=== PATIENT | male | born 1950 | race African-American/Black ===

== ENCOUNTER 2019-01-14 19:07 | Inpatient (IN) | payer OTHER ==
[~2019-01-14] VITALS: Ht 170.2 cm; Wt 74.8 kg
[2019-01-14 19:10] VITALS: BP 151/82
[2019-01-14 21:03] LABS: ABSOLUTE NEUTROPHILS 6.3 thou/uL (1.4-8.2); BASOPHILS 0.6 % (0.0-2.0); EOSINOPHILS 1.4 % (0.0-3.0); HEMATOCRIT 41.3 % (42.0-52.0); HEMOGLOBIN 13.8 gm/dL (14.0-18.0); LYMPHOCYTES 18.3 % (24.0-44.0); MCH 27.7 pg (26.0-34.0); MCHC 33.6 g/dL (28.0-37.0); MCV 82.7 fL (80.0-100.0); MONOCYTES 8.7 % (1.0-8.0); PLATELET COUNT 253 thou/uL (150-400); RBC 4.99 mil/uL (4.50-6.00); RDW 16.4 % (10.5-14.5); WBC 8.9 thou/uL (4.0-11.0)
[2019-01-14 21:11] LABS: ANION GAP 9 mmol/L (7-16); BUN 17 mg/dL (7-18); CALCIUM 9.8 mg/dL (8.5-10.1); CHLORIDE 103 mmol/L (98-107); CO2 27 mmol/L (21-32); CREATININE 1.1 mg/dL (0.7-1.3); GLUCOSE 111 mg/dL (74-106); POTASSIUM 3.6 mmol/L (3.5-5.1); SODIUM 139 mmol/L (136-145)
[2019-01-14 21:21] LABS: ALBUMIN 3.9 g/dL (3.4-5.0); SGOT 36 U/L (15-37); SGPT 33 U/L (30-65); TOTAL BILIRUBIN 0.5 mg/dL (<0.1-1.0); TOTAL PROTEIN 7.9 g/dL (6.4-8.2); TROPONIN-I <0.06 ng/mL (<0.06)
[2019-01-14 21:24] LABS: BE(vivo) 1.7 mmol/L (-2 to +3); HCO3 26.5 mmol/L (22.0-26.0); PCO2 42.4 mmHg (35.0-45.0); pH 7.414 (7.360-7.450); sO2 88.5 % (92.0-98.0)
[2019-01-14 21:31] LABS: PO2 54.1 mmHg (80.0-100.0)
[2019-01-15] MEDS ORDERED: PREDNISONE 5 MG5 M1 PO (00:39)
[2019-01-15] MEDS ORDERED: FLOMAX0.4 MG PO (00:39)
[2019-01-15] MEDS ORDERED: SINGULAIR 10 MG10 M1 PO (00:40)
[2019-01-15] MEDS ORDERED: VENTOLIN HFA 1818 GM INH (00:40)
[2019-01-15] MEDS ORDERED: NORVASC5 MG PO (00:42)
[2019-01-15] MEDS ORDERED: IPRAT-ALBUT 0.5-3 ML INH (00:42)
[2019-01-15] MEDS ORDERED: FLONASE 0.05%50 MCG NASAL (00:43)
[2019-01-15] MEDS ORDERED: BREO ELLIPTA 11 EACH INH (00:44)
[2019-01-15 01:10] VITALS: BP 147/88
--- NOTE | 2019-01-15 03:17 | NUR ---
PT ARRIVED TO UNIT AROUND 2400. ADMISSION COMPLETED, CARE PLAN INITIATED, MED REC COMPLETED. PT IS UP AD IRAIS, VSS, NO COMPLAINTS OF N/V OR PAIN. ONLY COMPLAINT WAS THAT PT DID NOT TAKE HIS FLOMAX BEFORE ARRIVING TO [facility]. GAVE NO SCHEDULED DOSE TO REDUCE PT ANXIETY AND HELP WITH URINATION. FOLLOWING POC WITH IVPB ANTIBIOTICS. HOURLY ROUNDING.
[2019-01-15 03:40] VITALS: BP 142/91
[2019-01-15 07:25] VITALS: BP 139/83
--- NOTE | 2019-01-15 08:26 | NUR ---
ASSESSMENT: CM REVIEWED CHART AND MET WITH PATIENT AT THE BEDSIDE. PT IS ALERT AND ORIENTED X4. PT WAS ADMITTED WITH ACUTE RESPIRATORY FAILURE/PNA. PT REPORTS LIVING IN A HOUSE WITH HIS . PT REPORTS ABOUT 3 STEPS WITH HANDRAILS TO ENTER AND NO STEPS HE HAS TO USE ONCE INSIDE. PT REPORTS AMBULATING INDEPENDENTLY AND IS INDEPENDENT WITH ADLS. PT DENIES HAVING ANY DME OR THE NEED FOR IT. PT REPORTS HE HAS NOT HAD HH IN THE PAST OR BEEN TO A SNF/REHAB. CM DISCUSSED ROLE. PT DOES NOT ANTICIPATE HAVING ANY NEEDS AT DISCHARGE AND PLANS ON RETURNING HOME ONCE MEDICALLY STABLE. CM WILL CONTINUE TO FOLLOW.
--- NOTE | 2019-01-15 08:37 | EKG ---
[place] [address] [facility] [place] [address] ELECTROCARDIOGRAM REPORT Name: JEAN SHRESTHA Room #: 349-I ADM IN M.R.#: [id number] ������������������ Admission: 01/14/19 ������������������ Attend Phys: Adams Lipscomb Discharge: ������������������ Date of : 52 Report #: [id number] ����������������������������������������������������������������� [id number] THIS REPORT FOR: //name// [facility] ED Test Date: 2019-01-14 Test Time: 20:41:47 Pat Name: JEAN SHRESTHA Department: Room: 349 Gender: M On Site Services Specialist: : 1950 Requested By: Lilibeth Fritz Order Number: [id number] MD: Rolf Johnston Measurements Intervals [place] Rate: 85 P: 49 NE: 196 QRS: -51 QRSD: 92 T: 73 QT: 342 QTc: 407 Interpretive Statements Sinus rhythm Left anterior fascicular block Abnormal R-wave progression, early transition No previous ECG available for comparison Electronically Signed On 01-15-2019 8:36:59 CDT by Rolf Johnston [email or web address] ��������������������������������������������� <ELECTRONICALLY SIGNED> ���������������������������������������� By: Rolf Johnston MD, [facility] ��������������������������������������������� 01/15/19 0836 40 40 Rolf Johnston MD, [facility] /EPI
[2019-01-15 16:11] VITALS: BP 150/81
[2019-01-15 20:02] VITALS: BP 145/89
[2019-01-16 03:37] VITALS: BP 128/75
--- NOTE | 2019-01-16 04:44 | NUR ---
FOLLOWING POC WITH IVPB AND ORAL MEDICATIONS. PT ON 2L 0XYGEN DUE TO BECOMING SOA ON EXERTION. PT AXIOUS ABOUT RECEIVING HIS MEDICATION BEFORE 2100. NO OTHER COMPLAINTS. VSS, TELE RUNS NSR.
[2019-01-16 05:46] LABS: ABSOLUTE NEUTROPHILS 17.7 thou/uL (1.4-8.2); BASOPHILS 0.1 % (0.0-2.0); HEMATOCRIT 43.4 % (42.0-52.0); LYMPHOCYTES 3.8 % (24.0-44.0); MCHC 32.3 g/dL (28.0-37.0); MCV 83.7 fL (80.0-100.0); MONOCYTES 3.6 % (1.0-8.0); PLATELET COUNT 302 thou/uL (150-400); POLYS 92.5 % (36.0-66.0); RBC 5.19 mil/uL (4.50-6.00); RDW 16.3 % (10.5-14.5); WBC 19.1 thou/uL (4.0-11.0)
[2019-01-16 07:12] VITALS: BP 130/84
--- NOTE | 2019-01-16 11:16 | NUR ---
PT REQUESTING MAGNESIUM CITRATE, STATES HE TAKES IT AT HOME. PAGED DR RODRIGUEZ.
--- NOTE | 2019-01-16 15:23 | NUR ---
ON-GOING ASSESSMENT: CM REVIEWED CHART. PT IS SLOWLY PROGRESSING TOWARDS DISCHARGE GOALS. PT IS UP AND WALKING AROUND THE UNIT. PT REPORTS HE WILL HAVE NO NEEDS AT DISCHARGE. CM WILL CONTINUE TO FOLLOW.
[2019-01-16 16:04] VITALS: BP 132/90
--- NOTE | 2019-01-16 18:38 | NUR ---
PT ON ROOM AIR ALL DAY, BREATHING EASIER PER SELF REPORT. PT AMBULATED AROUND UNIT MULTIPLE TIMES. PT HAS BEEN DOWNGRADED TO MED/SURG STATUS.
[2019-01-16 19:00] VITALS: BP 154/57
[2019-01-16 19:35] VITALS: BP 127/75
[2019-01-16 20:33] VITALS: BP 162/85
[2019-01-17 03:20] VITALS: BP 144/88
--- NOTE | 2019-01-17 04:10 | NUR ---
TRANSFER PT FROM [facility] ARRIVED THE UNIT AROUND 2029. PT A&OX4. ADLIB WITH STAEDY GAIT. OXYGEN STABLE. PT HAS NO BREATHING DIFFICULTIES. PT STATES HE FEELS SO MUCH BETTER. WILL CONT TO MONITOR
[2019-01-17 07:48] VITALS: BP 126/77
--- NOTE | 2019-01-17 14:45 | NUR ---
ASSUMED CARE OF PATIENT AT 0715, PATIENT ALERT AND ORIENTED X 4. PATIENT UP AD IRAIS, WALKING IN HALLWAYS. NO C/O PAIN AT THIS TIME. PATIENT HAS RIGHT HAND IV IN PLACE. BILATERAL LUNGS CLEAR/DIMINISHED, PATIENT ON ROOM AIR. VSS THIS AM. DR DIXON HERE THIS AFTERNOON, PATIENT WILL DISCHARGE TO HOME. WILL D/C RIGHT HAND IV, AND GIVE ALL DISCHARGE PAPERWORK AND ENSURE ALL PERSONAL BELONGINGS WILL BE SENT WITH THE PATIENT.
[2019-01-17] MEDS ORDERED: LEVAQUIN 750 M750 MG PO (14:52)
[2019-01-17] MEDS ORDERED: PREDNISONE 10 M10 MG PO (14:53)
[2019-01-17 15:25] VITALS: BP 126/77
== END 2019-01-17 17:26 | disposition home or self-care (01) | DRG 205 ==
LOC: ER 19:07 → 3W 21:39 → EROBS 21:39 → 3W 23:13 → 4W 01-16 19:56
PROVIDERS: Pediatrics; Physician Assistant; ADMIT Hospitalist
DX: J68.0 Bronchitis and pneumonitis due to chemicals, gases, fumes and vapors (principal); J96.21 Acute and chronic respiratory failure with hypoxia; J45.901 Unspecified asthma with (acute) exacerbation; J44.0 Chronic obstructive pulmonary disease with (acute) lower respiratory infection; J44.1 Chronic obstructive pulmonary disease with (acute) exacerbation; I10 Essential (primary) hypertension; N40.0 Benign prostatic hyperplasia without lower urinary tract symptoms; E66.9 Obesity, unspecified; Z87.891 Personal history of nicotine dependence; Z68.25 Body mass index [BMI] 25.0-25.9, adult; Z79.899 Other long term (current) drug therapy
CPT/HCPCS: 10047; 10879

== ENCOUNTER → 2019-01-30 | Outpatient (CLI) | payer OTHER ==
[~2019-01-30] MED LIST: BREO ELLIPTA 11 EACH INH; FLOMAX0.4 MG PO; FLONASE 0.05%50 MCG NASAL; IPRAT-ALBUT 0.5-3 ML INH; LEVAQUIN 750 M750 MG PO; NORVASC5 MG PO; PREDNISONE 10 M10 MG PO; PREDNISONE 5 MG5 M1 PO; SINGULAIR 10 MG10 M1 PO; VENTOLIN HFA 1818 GM INH
== END ==
LOC: RAD 09:08
DX: J98.11 Atelectasis (principal); R91.8 Other nonspecific abnormal finding of lung field; R91.1 Solitary pulmonary nodule

== ENCOUNTER 2019-06-06 04:58 | Inpatient (IN) | payer OTHER ==
[2019-06-06] VITALS (7 sets, daily range): BP systolic 144–164; BP diastolic 80–100
[~2019-06-06] VITALS: Ht 170.2 cm; Wt 79.8 kg
[2019-06-06 05:44] LABS: BE(vivo) 1.8 mmol/L (-2 to +3); HCO3 26.5 mmol/L (22.0-26.0); PCO2 41.8 mmHg (35.0-45.0); PO2 77.4 mmHg (80.0-100.0); sO2 95.7 % (92.0-98.0)
[2019-06-06] MEDS ORDERED: CLARITIN10 MG PO (06:37)
[2019-06-06] MEDS ORDERED: PROSCAR 5MG TABL5 MG PO (06:38)
[2019-06-06 06:39] LABS: HEMATOCRIT 43.5 % (42.0-52.0); HEMOGLOBIN 13.7 gm/dL (14.0-18.0); MCH 26.3 pg (26.0-34.0); MCHC 31.5 g/dL (28.0-37.0); MCV 83.4 fL (80.0-100.0); RBC 5.21 mil/uL (4.50-6.00); RDW 14.7 % (10.5-14.5)
[2019-06-06] MEDS ORDERED: CARTIA XT120 M1 PO (06:39)
[2019-06-06] MEDS ORDERED: PROTONIX 20 MG20 MG PO (06:39)
[2019-06-06] MEDS ORDERED: TRELEGY ELLIPTA PO (06:43)
[2019-06-06] MEDS ORDERED: AEROBIKA1 EACH PO (06:44)
[2019-06-06 06:46] LABS: ANION GAP 9 mmol/L (7-16); BUN 11 mg/dL (7-18); CALCIUM 9.1 mg/dL (8.5-10.1); CHLORIDE 103 mmol/L (98-107); CO2 29 mmol/L (21-32); CREATININE 1.1 mg/dL (0.7-1.3); GLUCOSE 90 mg/dL (74-106); POTASSIUM 3.4 mmol/L (3.5-5.1); SODIUM 141 mmol/L (136-145)
[2019-06-06 06:55] LABS: TROPONIN-I <0.06 ng/mL (<0.06)
--- NOTE | 2019-06-06 09:04 | EKG ---
[place] [address] [facility] [email or web address] [address] ELECTROCARDIOGRAM REPORT Name: JEAN SHRESTHA Room #: 170-9 ADM IN M.R.#: [id number] Admission: 06/06/19 Attend Phys: Abdelrahman Garcia MD Discharge: Date of : 52 Report #: [id number] THIS REPORT FOR: //name// [facility] ED Test Date: 2019-06-06 Test Time: 05:24:32 Pat Name: JEAN SHRESTHA Department: Room: 170 Gender: M Corporate Consultant: kb dias rn : 1950 Requested By: Grant Arceo Order Number: [id number] MD: Rolf Johnston Measurements Intervals [place] Rate: 82 P: 63 MS: 172 QRS: -50 QRSD: 96 T: 61 QT: 364 QTc: 425 Interpretive Statements Sinus rhythm RSR' in V1 or V2, right VCD Possible Inferior infarct, old Compared to ECG 01/14/2019 20:41:47 Inferior Q waves are more prominent Electronically Signed On 06-06-2019 9:03:31 INS[employer] OFFICERS by Rolf Johnston [email or web address] <ELECTRONICALLY SIGNED> By: Rolf Johnston MD, [facility] 06/06/19902 3 3 Rolf Johnston MD, [facility] /EPI
--- NOTE | 2019-06-06 12:17 | NUR ---
Pt admitted via the ER with presistent cough/sob. He is known to cm from previous admissions. He has hx of copd and normally sees Dr. Gould, Pulmonary as an outpt. He is indep with gait and adl's and lives with his spouse. He is on SS disability and has [employer] for f/u care and scripts. His pcp is Dr Feng. He has 3 steps to enter his home. No dme or HH history. No cm interventions indicated at this time. Sputum cultures are pending. Likely dc to home with [place]pt f[place]u [place]. Will remain available should dc needs arise.
--- NOTE | 2019-06-06 17:54 | NUR ---
ASSUMED CARE OF PT AT APPROX 0935 FROM ER D/T COPD EXACERBATION. ADMISSION ORDERS AND INSTRUCTIONS COMPLETE. ASSESSMENTS CHARTED. MEDS GIVEN PER JUL. NO C/O SOA OR PAIN. NO O2 AT THIS TIME. PT WALKING IN THE HALLS INDEPENDENTLY. PT REPORTS DR. PRATT SAID COULD DC TOMORROW. WILL CONTINUE TO MONITOR AND FOLLOW POC.
[2019-06-07 04:45] VITALS: BP 139/67
--- NOTE | 2019-06-07 04:48 | NUR ---
ASSESSMENT DOCUMENTED.PT BEEN RESTING IN NO ACUTE DISTRESS.A/OX4.VSS.ON RA W/O RESPIRATORY DISTRESS.NEB TX PER RT.CONTINUES TO HAVE A PRODUCTIVE COUGH BUT PT STATED THAT HE FEELS MUCH BETTER,ANTICIPATING TO GO HOME TODAY.NO CONCERNS VOICED AT THIS TIME.
[2019-06-07 05:19] LABS: CALCIUM 8.9 mg/dL (8.5-10.1); CREATININE 1.1 mg/dL (0.7-1.3); POTASSIUM 3.9 mmol/L (3.5-5.1)
[2019-06-07 05:35] LABS: HEMATOCRIT 41.5 % (42.0-52.0); HEMOGLOBIN 13.5 gm/dL (14.0-18.0); MCHC 32.5 g/dL (28.0-37.0); MCV 83.2 fL (80.0-100.0); RBC 4.99 mil/uL (4.50-6.00); RDW 14.8 % (10.5-14.5); WBC 10.4 thou/uL (4.0-11.0)
[2019-06-07] MEDS ORDERED: AZITHROMYCIN500 MG PO (12:04)
[2019-06-07] MEDS ORDERED: PREDNISONE 20 M20 MG PO (12:04)
[2019-06-07 12:09] VITALS: BP 139/67
[2019-06-07 12:13] VITALS: BP 139/67
--- NOTE | 2019-06-07 12:31 | NUR ---
PT CARE ASSUMED APPROX 0700. PT DENIES PAIN AND SOA. VSS. UP WITH STEADY GAIT. APPROVED FOR DISCHARGE AT THIS TIME. DISCHARGE EDUCATION COMPLETED WITH PT ONLY. HE DENIES QUESTIONS AND CONCERNS REGARDING POST HOSPITAL CARE. IV OUT, TELE BOX OFF. ALL BELONINGINGS IN PT POSSESSION PER PT REPORT. WILL ESCORT PT OUT TIMELY.
== END 2019-06-07 13:45 | disposition home or self-care (01) | DRG 189 ==
LOC: ER 04:58 → EROBS 07:22 → 2N 09:24
PROVIDERS: Emergency Medicine; ADMIT Hospitalist
DX: J96.21 Acute and chronic respiratory failure with hypoxia (principal); J44.1 Chronic obstructive pulmonary disease with (acute) exacerbation; R04.2 Hemoptysis; J45.909 Unspecified asthma, uncomplicated; I10 Essential (primary) hypertension; Z79.899 Other long term (current) drug therapy; Z87.891 Personal history of nicotine dependence
CPT/HCPCS: 10797

== ENCOUNTER → 2019-07-22 | Outpatient (CLI) | payer OTHER ==
[~2019-07-22] MED LIST changes: +AEROBIKA1 EACH PO; +AZITHROMYCIN500 MG PO; +CARTIA XT120 M1 PO; +CLARITIN10 MG PO; +PREDNISONE 20 M20 MG PO; +PROSCAR 5MG TABL5 MG PO; +PROTONIX 20 MG20 MG PO; +TRELEGY ELLIPTA PO
== END ==
LOC: CAT 13:31
DX: Z12.2 Encounter for screening for malignant neoplasm of respiratory organs (principal); R91.1 Solitary pulmonary nodule; J92.9 Pleural plaque without asbestos; Z87.891 Personal history of nicotine dependence

== ENCOUNTER → 2020-08-24 | Outpatient (CLI) | payer OTHER | LOC: CAT 08:17 | DX: Z12.2 Encounter for screening for malignant neoplasm of respiratory organs (principal); R91.1 Solitary pulmonary nodule; K76.89 Other specified diseases of liver; Z87.891 Personal history of nicotine dependence ==